=== PATIENT | female | born 1985 | race Caucasian/White ===

== ENCOUNTER 2022-12-16 08:49 | Outpatient (CLI) | payer OTHER, SELFPAY ==
--- NOTE | ~2022-12-16 | NM_ITS ---
EXAMINATION: NM hepatobiliary wo pharm DATE: 12/16/2022 13:58 INDICATION: Right upper quadrant abdominal pain. COMPARISON: Ultrasound 12/16/2022 TECHNIQUE: 5.4 mCi Tc-99m mebrofenin (Choletec) was administered intravenously. Scintigraphic images of the abdomen were obtained for one hour. Then, the patient drank 8 oz Ensure, and imaging was cont inued for 60 minutes. FINDINGS: There is normal clearance of radiotracer from the blood pool. There is homogeneous tracer u ptake by the liver. Activity progresses to the bowel and gallbladder. Gallbladder ejection fraction (GBEF) was 31%. Note that with this technique, normal GBEF >= 33%. IMPRESSION: 1. Low gallbladder ejection fraction, consistent with gallbladder dysfunction and/or chronic cholecy stitis. Reviewed, dictated and finalized at location A. ROOM CLERK IMPRESSION: 1. Low gallbladder ejection fraction, consistent with gallbladder dysfunction and/or chronic cholecystitis.
--- NOTE | ~2022-12-16 | US_ITS ---
Abdominal Sonogram: Real-time sonographic imaging of the abdomen was performed. Clinical History: Abdominal pain Findings: The liver appears normal with no evidence of mass lesion or bile duct dilatation. Main por beba vein demonstrates normal direction of flow. The spleen is normal in size without evidence of foca l lesion. The gallbladder is well distended, and appears normal with no evidence of gallstone or wal l thickening. The common bile duct measures 3 mm. The visualized pancreas, aorta, and IVC are unrema rkable. The right kidney measures 10.4 cm in length and the left kidney measures 10.5 cm. There is no hydronephrosis or renal calculus. Impression: Unremarkable abdominal ultrasound. Reviewed, dictated and finalized at location . GRAPH OFFICE ROUTE AIDE Impression: Unremarkable abdominal ultrasound.
== END 2022-12-16 08:50 | disposition home or self-care (01) ==
PROVIDERS: PCP Emergency Medicine; Visit Provider Emergency Medicine
DX: R10.11 Right upper quadrant pain (principal)
CPT/HCPCS: 76700; 78226; A9537

== ENCOUNTER 2023-05-12 03:25 | Day surgery (SDC) | payer OTHER, SELFPAY ==
--- NOTE | 2023-05-09 14:30 | PM.HPGS ---
History of Present Illness History of Present Illness Consent: Risks, benefits, and alternatives have been discussed and questions answered. Patient agrees to proceed with procedure. Chief complaint: Right upper quadrant pain, nausea Narrative: Charisse Blanton is a 38 year old female referred ?for evaluation of right upper quadrant pain.? Right upper quadrant pain has been going on for approximately 6 months.? reports a constant dull ache in her right upper quadrant that radiates to her back up into her shoulder blades and into neck and down her right arm. At first thought pain was MSK and underwent PT with no improvement. Pain believe to gallbladder related. She did have a mildly low ejection fraction at 31 with normal abdominal US. Then referred to Dr. Cee. Per Dr. Cee notes, he didnt feel like these were typical gallbladder symptoms and referred to us. She states right upper quadrant pain is worse with eating beef, oatmeal, high protein diet, eggs, and nuts. She follows a strict gluten free and lactose free diet. She reports nausea every AM with no vomiting. Also reports no appetite in the morning. Morning routine usually consist of coffee and her protein shake.? Nausea improves throughout the day. Review of Systems Review of Systems: All systems reviewed & are unremarkable except as noted in HPI and below PMFSH Past Medical History Medical History Constipation Surgical History Surgical History History of endometrial ablation 2020 Family History Family History (Updated 12/30/22 @ 10:03 by Michelle Benitez) Father Hyperlipidemia Brain cancer Mother Hyperlipidemia Hypertension Social History Social History Years smoked: 2 Smoking status: Former smoker Tobacco type: cigarettes Smoking end date: 10/27/02 Alcohol intake: current Alcohol use details: 1 glass wine/month Substance use: never Substance use type: does not use Living arrangements: with family Spiritual care concerns: No Meds Home Medications and Allergies Home Medications Medication Instructions Recorded Confirmed Type No Home Medications 12/30/22 05/12/23 History Allergies Allergy/AdvReac Type Severity Reaction Status Date / Time ibuprofen AdvReac Other Verified 05/12/23 07:45 naproxen AdvReac Other Verified 05/12/23 07:45 Exam Const: General: alert Orientation/consciousness: patient oriented x3 Resp: Auscultation: clear to auscultation bilaterally Cardio: Rhythm: regular rhythm GI: GI Palp: Yes Soft to palpation and No Tenderness to palpation present (GI) Neuro: General: patient oriented x3 Assessment and Plan Assessment and plan (1) RUQ pain: Code(s): R10.11 - Right upper quadrant pain Status: Acute Assessment and Plan: EGD with possible biopsy or dilatation or cautery.
[2023-05-12 07:46] VITALS: BP 114/81; PULSE 71; RESP 15; TEMP 36.3; O2SAT 100; BMI 25.8
[2023-05-12] MEDS: LACTATED RINGERS 1,000 ML 150 ML IV CONT (07:58)
--- NOTE | 2023-05-12 08:38 | P.PNAN_ITS ---
Anes - Initial Pre Proc Eval Procedure: Operation Date: 05/12/23 09:00 Proposed Procedures p Esophagogastroduodenoscopy - Tulio Dillon MD Date/Time: 05/12/23 08:38 Surgeon: Tulio Dillon MD Pre Op Diagnosis: Right upper quadrant pain, nausea Patient Data Age: 38 Gender: F Height: 1.55 m Weight: 62.1 kg Last Vital Signs Temp 97.3 F L 05/12/23 07:46 Pulse 71 05/12/23 07:46 Resp 15 05/12/23 07:46 BP 114/81 05/12/23 07:46 Pulse Ox 100 05/12/23 07:46 O2 Del Method Room Air 05/12/23 07:46 Allergies Allergy/AdvReac Type Severity Reaction Status Date / Time ibuprofen AdvReac Other Verified 05/12/23 07:45 naproxen AdvReac Other Verified 05/12/23 07:45 Home Medications Medication Instructions Recorded Confirmed Type No Home Medications 12/30/22 05/12/23 History Patient hx anesthesia problems: none Family hx anesthesia problems: none Results Review: All pre-operative results and documents have been reviewed as part of the pre- operative evaluation. FOR[facility]LY [facility] Past Medical History Medical History (Updated 01/15/23 @ 11:07 by ADRIENNE Carrillo) Constipation Surgical History Surgical History (Updated 12/30/22 @ 10:01 by Michelle Benitez) History of endometrial ablation 2020 Family History Family History (Updated 12/30/22 @ 10:03 by Michelle Benitez) Father Hyperlipidemia Brain cancer Mother Hyperlipidemia Hypertension Social History Social History (Updated 12/30/22 @ 10:02 by Michelle Benitez) Years smoked: 2 Smoking status: Former smoker Tobacco type: cigarettes Smoking end date: 10/27/02 Alcohol intake: current Alcohol use details: 1 glass wine/month Substance use: never Substance use type: does not use Living arrangements: with family Spiritual care concerns: No Anes - Eval Final PreProcedure Day of Procedure 05/12/23 08:38 Patient weight: normal Heart: regular rate and rhythm Lungs: clear to auscultation Airway: Mallampati scale class II Neurological: alert and oriented Last oral intake: >/= 8 hours ASA classification: II Emergent: no Anesthetic plan: proceed Anesthesia type and monitoring: general GIVS and standard monitoring Results Review: All pre-operative results and documents have been reviewed as part of the pre- operative evaluation. Informed Consent: The patient's anesthetic plan and its attendant risks and benefits were discussed with the patient/family/POA. Questions were solicited and answers provided to the satisfaction of the patient/family/POA.
[2023-05-12 09:10] VITALS: BP 104/66; PULSE 86; RESP 19; O2SAT 100
[2023-05-12 09:20] VITALS: BP 106/71; PULSE 82; RESP 20; O2SAT 98
[2023-05-12 09:30] VITALS: BP 106/67; PULSE 80; RESP 20; O2SAT 100
== END 2023-05-12 09:37 | disposition home or self-care (01) ==
PROVIDERS: PCP Emergency Medicine; Visit Provider Internal Medicine Gastroenterology
PROC: 0DJ08ZZ Inspection of Upper Intestinal Tract, Via Natural or Artificial Opening Endoscopic (ICD-10-PCS; CPT 43235; principal; 2023-05-12 09:00)
DX: R10.11 Right upper quadrant pain (principal); R11.0 Nausea; Z87.891 Personal history of nicotine dependence; K21.9 Gastro-esophageal reflux disease without esophagitis
CPT/HCPCS: 43235; 87081; J2704; J7120

== ENCOUNTER 2023-08-28 12:40 | Outpatient (CLI) | payer OTHER, SELFPAY ==
[2023-08-28 15:08] LABS: Alanine Aminotransferase 20 U/L (6-35); Albumin Level 4.2 g/dL (3.5-5.1); Alkaline Phosphatase 43 U/L (38-126); Amylase 89 U/L (30-110); Aspartate Amino Transferase 25 U/L (14-36); Bilirubin,Total 0.3 mg/dL (0.2-1.3); Lipase 74 U/L (23-300)
== END 2023-08-28 12:41 | disposition home or self-care (01) ==
PROVIDERS: PCP Emergency Medicine; Visit Provider Surgery
DX: K81.1 Chronic cholecystitis (principal); Z01.818 Encounter for other preprocedural examination
CPT/HCPCS: 36415; 80076; 82150; 83690; 86850; 86900; 86901

== ENCOUNTER 2023-09-03 03:15 | Day surgery (SDC) | payer OTHER, SELFPAY ==
[2023-08-26 14:56] VITALS: BMI 25.1
--- NOTE | 2023-08-26 15:00 | PC.NURSE ---
Report to the Outpatient Waiting Room, entrance under the green pavilion located off [facility], at time 11:30 on date 09/03/23. Planned Procedure Time: 1:30. Time changes happen often and if your time is changed the preop area will call you the afternoon before. - You and your visitor will be asked to self-screen and do not enter if you have any COVID symptoms. - A mask is optional within the hospital at this time. Patients may have clear liquids (water, carbonated beverages, clear teas, apple juice) until 3 hours prior to surgery (10:30) with a maximum of 20 ounces. - No food from midnight until time of surgery Take the following medications with a SIP of water the morning of surgery: N/A DO NOT STOP ANY OF YOUR OTHER PRESCRIPTION MEDICATIONS PRIOR TO SURGERY ?EXCEPT THE FOLLOWING Medications to discontinue per physician: N/A Date to take last dose: N/A Please no make-up, nail dominican, hairspray, perfume, deodorant, or body powder the day of surgery. No jewelry (including any body piercings) or valuables the day of surgery, leave them at home. Please take a shower or bath the night before, or the morning of, surgery with an antibacterial soap. Wear comfortable, loose fitting clothing. - Jewelry must be removed prior to entering the operating room. Rings and piercings that are not removed may be cut off. - The hospital will not accept responsibility for valuables. - Please leave all valuables, including medications, at home the day of surgery. If you are going home after surgery, a licensed local delivery driver must drive you home. - NO public transportation without another adult if you receive anesthesia. - We recommend that an adult stay with you for 24 hours following discharge. - We also recommend that you do not drive, make important decision, drink alcoholic beverages, or take any drugs that were not prescribed by your health care provider for at least 24 hours after your discharge time. Follow any additional instructions given to you from your surgeon. If you or anyone in your household have experienced Covid symptoms in the past week, please notify your surgeon or the nurse liaison at the phone number below for possible testing. Telephone instructions given to PT - GREG VINES and asked if any additional questions and then verbalized understanding. Patient advised to call surgeon office or pre surgery nurse liaison [phone] if any additional questions.
[2023-09-03] VITALS (10 sets, daily range): BP systolic 103–125; BP diastolic 65–84; PULSE 64–77; RESP 12–18; TEMP 36.2–36.5; O2SAT 95–100
--- NOTE | 2023-09-03 12:35 | WPDHPUPDATE1 ---
History and Physical Update Update Date/Time: 09/03/23 12:35 History and Physical has been reviewed, including an updated exam of the patient. There are NO changes in the patient's condition. Risks, benefits, and alternatives have been discussed and questions answered. Patient agrees to proceed with procedure.
--- NOTE | 2023-09-03 12:36 | P.PNAN_ITS ---
Anes - Initial Pre Proc Eval Procedure: Operation Date: 09/03/23 13:30 Proposed Procedures p Laparoscopic Cholecystectomy - Abelino Cee MD Date/Time: 09/03/23 12:36 Surgeon: Abelino Cee MD Pre Op Diagnosis: Chr Cholecystitis Patient Data Age: 38 Gender: F Height: 1.55 m Weight: 60.35 kg Allergies Allergy/AdvReac Type Severity Reaction Status Date / Time ibuprofen AdvReac Flushing Verified 08/26/23 14:56 naproxen AdvReac Flushing Verified 08/26/23 14:56 Home Medications Medication Instructions Recorded Confirmed Type No Home Medications 12/30/22 08/27/23 History Patient hx anesthesia problems: none Family hx anesthesia problems: none Results Review: All pre-operative results and documents have been reviewed as part of the pre- operative evaluation. PMFSH Past Medical History Medical History Constipation Surgical History Surgical History History of endometrial ablation 2020 Family History Family History (Updated 12/30/22 @ 10:03 by Michelle Benitez) Father Hyperlipidemia Brain cancer Mother Hyperlipidemia Hypertension Social History Social History Years smoked: 3 Smoking status: Former smoker Tobacco type: cigarettes Smoking end date: 10/27/02 Alcohol intake: never Alcohol use details: 1 glass wine/month Substance use: never Substance use type: does not use Living arrangements: with family Spiritual care concerns: No Anes - Eval Final PreProcedure Day of Procedure 09/03/23 12:36 Patient weight: normal Heart: regular rate and rhythm Lungs: clear to auscultation Airway: Mallampati scale class II Neurological: alert and oriented Last oral intake: >/= 8 hours ASA classification: II Emergent: no Anesthetic plan: proceed Anesthesia type and monitoring: general ETT and standard monitoring Results Review: All pre-operative results and documents have been reviewed as part of the pre- operative evaluation. Informed Consent: The patient's anesthetic plan and its attendant risks and benefits were discussed with the patient/family/POA. Questions were solicited and answers provided to the satisfaction of the patient/family/POA.
[2023-09-03] MEDS: ceFAZolin 2 GM/D5W 50 ML 2 GM/50 ML BAG IVPB (13:06)
[2023-09-03] MEDS: BUPIVACAINE/EPINEPHRINE 0.5% 50 ML VIAL INFILTRATE (13:59)
[2023-09-03] MEDS: LACTATED RINGERS 1,000 ML 30 ML IV CONT ×2 (14:16)
--- NOTE | 2023-09-03 14:23 | P.OP_ITS ---
Procedure Note - Detailed Date of Procedure 09/03/23 Pre-op Diagnosis Acalculous chronic cholecystitis Post-op Diagnosis Same Procedure Performed Laparoscopic cholecystectomy Surgeon Abelino Cee MD Wire Products Inspector Zoey Stein [facility] Anesthesia General and Local Indications Patient is a 38-year-old woman who has postprandial right upper quadrant pain that radiates around to her back. She had a gallbladder ultrasound which was negative. Her HIDA scan had a low gallbladder ejection fraction. She had an EGD which showed some nonerosive reflux disease. She is felt to have acalculous chronic cholecystitis and is taken to surgery now for laparoscopic cholecystectomy. Findings I did not see any stones in the gallbladder. There was thickened bile. Liver appeared normal. There was chronic inflammation in the area of the neck of the gallbladder as well as the triangle of Calot. This was consistent with chronic cholecystitis. Description of Procedure Patient was taken to surgery and induced into general anesthesia. The abdomen is prepped and draped. Trocars were placed in the usual fashion using applied Medical optical trocars and a varies needle. After adequate insufflation, we exposed the gallbladder. I tried to decompress the gallbladder with a laparoscopic aspirator. The bile was too thick to passed through the aspirator. I then enlarged this hole and placed the suction in the gallbladder which did go ahead and allow the gallbladder to be decompressed. This opening in the gallbladder was then closed with a Vicryl endoloop. The gallbladder was retracted anterosuperiorly. Dissection was carried out in the cholecystohepatic triangle. The cystic duct and cystic artery were carefully dissected. Gallbladder was dissected off the liver at its lower half. Critical view was achieved. I then securely clipped and divided the cystic duct and cystic artery. The gallbladder was further dissected free of its peritoneal attachments and of the peritoneum to the liver. Once freed, the gallbladder was placed in an Endo-Catch bag. It was able to be retrieved through the 10 11 epigastric trocar site without difficulty. We replaced the epigastric trocar a nd reviewed the right upper quadrant. Irrigation and suction were carried out several times. All looked good with no evidence of bleeding or bile leakage. We then evacuated CO2 and removed the trocar sleeves. Skin wounds were closed with subcuticular 4-0 Monocryl skin suture. The wounds were dressed with Exofin surgical adhesive. The patient was awakened and taken to recovery in good condition. Sponge and needle counts were correct x2. Estimated Blood Loss -5 Drains No Packing No Pathology Yes (Gallbladder) Complications No immediate complications Condition Stable Disposition PACU [facility] Billing Surgery - Charge Forward: Surgery Billing (Laparoscopic cholecystectomy)
[2023-09-03] MEDS: fentaNYL CITRATE INJ (*CRX) 100 MCG/2 ML VIAL 25 MCG IV PUSH ×6 (14:27→15:06)
[2023-09-03] MEDS: ONDANSETRON INJ 4 MG/2 ML VIAL IV PUSH (15:34)
[2023-09-03] MEDS: SCOPOLAMINE 1.5 MG PATCH TRANSDERM (15:49)
[2023-09-03] MEDS: diphenhydrAMINE HCl INJ 50 MG/ML VIAL 25 MG IV PUSH (16:21)
== END 2023-09-03 16:45 | disposition home or self-care (01) ==
PROVIDERS: PCP Emergency Medicine; Visit Provider Surgery
PROC: 0FT44ZZ Resection of Gallbladder, Percutaneous Endoscopic Approach (ICD-10-PCS; CPT 47562; principal; 2023-09-03 13:30)
DX: K81.1 Chronic cholecystitis (principal); Z87.891 Personal history of nicotine dependence
CPT/HCPCS: 47562; 88304; A9270; C1713; J0690; J1100; J1170; J1200; J2250; J2405; J2704; J3010; J7120

== ENCOUNTER 2025-05-16 13:27 | Outpatient (CLI) | payer OTHER, SELFPAY ==
--- NOTE | ~2025-05-16 | MMUS_ITS ---
EXAMINATION: MM diagnostic farooq BI w drake and US breast BI limited. INDICATION: 40-year old female; evaluation of left breast palpable lump felt by the patient at 12:00 location and palpable right breast lump felt by the care provider at 11:00 location. 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 COMPARISON: Baseline. TECHNIQUE: Digital breast tomosynthesis True lateral and spot compression with magnification views in MLO and CC of the BILATERAL breasts were obtained with computer-aided detection to assist in interpr etation of the study. A radiopaque skin marker identifies location of palpable lump in the left breas t. MAMMOGRAM FINDINGS: The breasts are heterogeneously dense, which may obscure small masses. Loosely grouped punctate calcifications in the upper central right breast. Asymmetry seen in the medi al at anterior depth within the right breast effaces on spot compression compatible with superimposit ion of fibroglandular tissue. Regional punctate calcifications that spans 2.6 cm in the outer central at posterior depth centered a t 7 cm posterior to the nipple are considered suspicious. In addition, there is a 0.4 cm grouped punc saunders calcifications in the subareolar location within the left breast. A focal asymmetry in the superior central at posterior depth correlates to the radiopaque skin marker on the left breast BILATERAL BREAST ULTRASOUND FINDINGS: Targeted evaluation of the palpable areas in both breast was completed. Right breast: Corresponding to the area of palpable lump felt by the provider, there is a 0.8 x 0.9 x 0.5 cm simple cyst at 11:00, 1 cm from the nipple. Left breast: Corresponding to the area of palpable lump felt by the patient, there is an heterogeneou s hyperechoic area the measure 2.3 x 2.7 x 0.7 cm at 12:00 location, 4 cm from the nipple. IMPRESSION: 1. Suspicious left breast regional calcifications in the outer central location and at subareolar lo cation. Recommend biopsy of both groups under stereotactic guidance. 2. Indeterminate heterogeneous hyperechoic palpable lesion at 12:00 location in the left breast that correlates to the palpable lump. Biopsy is recommended. 3. Probably benign loosely grouped punctate calcification upper central right breast. Short-term fol low-up is advised. 4. Benign simple cyst at 11:00 location in the right breast correlates to the palpable lump felt by the clinician. RECOMMENDATION: 1. Stereotactic core needle biopsy of left breast regional calcification outer central location. 2. Stereotactic core needle biopsy left breast subareolar grouped calcifications. 3. Ultrasound guided core needle biopsy of palpable indeterminate lesion at 12:00 location in the lef t breast. 4. Short-term follow-up diagnostic right mammogram with magnification views in 6 months. BI-RADS 4, SUSPICIOUS Reviewed, dictated and finalized at location B. IMPRESSION: 1. Suspicious left breast regional calcifications in the outer central locatio n and at subareolar location. Recommend biopsy of both groups under stereotacti c guidance. 2. Indeterminate heterogeneous hyperechoic palpable lesion at 12:00 location i n the left breast that correlates to the palpable lump. Biopsy is recommended. 3. Probably benign loosely grouped punctate calcification upper central right breast. Short-term follow-up is advised. 4. Benign simple cyst at 11:00 location in the right breast correlates to the palpable lump felt by the clinician. RECOMMENDATION: 1. Stereotactic core needle biopsy of left breast regional calcification outer central location. 2. Stereotactic core needle biopsy left breast subareolar grouped calcification s. 3. Ultrasound guided core needle biopsy of palpable indeterminate lesion at 12: 00 location in the left breast. 4. Short-term follow-up diagnostic right mammogram with magnification views in 6 months. BI-RADS 4, SUSPICIOUS
--- OUTSIDE RECORDS SUMMARY | 2025-05-16 13:35 | XMS_ITS | Patient Health Record ---
Author Organization [facility] Address [address] [place] [address] Care Team Providers Care Grab Driver Name Role Phone [facility] Unavailable [phone] Reason For Referral No Information Medications Medication SIG (Take, Route, Frequency, Duration) Notes Start Date End Date Status Fluticasone Propionate 50 MCG/ACT 1 spray on each nostril once a day Nasal 02/11/2018 Active Clotrimazole-Betamethasone 1-0.05 % apply on external vaginal area twice a day External 03/19/2019 Active Ofloxacin 0.3 % 1-2 drops on affecte d eye/s three times a day Ophthalmic 11/26/2019 Active Medrol 4 MG take as directed on the pack Oral 08/25/2017 Active LORazepam 0.5 MG take 1 tab 1 hr prio r to MRI Oral 09/11/2017 Active Amoxicillin 875 MG twice a day Oral twi ce a day 05/30/2017 Active Tamiflu 6 MG/ML Take 12.50 mL 2 time s per day for 5 day(s) Oral 11/24/2017 Active Singulair 10 MG once a day Oral once a day 01/21/2020 Active Proctosol HC 2.5 % apply on rectal area twice a day Rectal 03/19/2019 Active Omeprazole 40 MG once a day Oral once a day 03/31/2018 Active Amoxicillin 400 MG/5ML take 10 ml twice a day for 10 days Oral 02/11/2018 Active Immunizations Vaccine Route Administration Date Status Comme nts Influenza (split), 3 yrs and above Unknown 11/03/2019 Administered vaccine informat ion given patient gave verbal consent for vaccine Problems Problem Type SNOMED Code ICD Code Onset Dates Problem Status W/U Status Risk Notes Problem Acute sinusitis (58899961) Acute sinusitis, unspecified (J01.90) 02/12/20 18 Active confirmed Problem Cervicalgia (04173929) Cervicalgia (M54.2) 09/01/20 17 Active confirmed Problem Dysphagia (86978870) Dysphagia, unspecified (R13.10) 02/12/20 18 Active confirmed Problem Low back pain (087654825) DO NOT USE Low back pain (M54.5) 08/25/20 17 Active confirmed Problem Abnormal cervical Papanicolaou smear with positive human papillomavirus deoxyribonucleic acid test (856166509) Cervical low risk HPV DNA test positive (R87.820) 11/26/19 20 Active confirmed Plan Of Treatment No Information Insurance Providers Payer Name Payer Address Payer Phone Subscriber Number Group Number Insured Name Patient Relationship to Insured Coverage Start Date Coverage End Date [address] [place] [phone] [id number] Jaylen Duenas Spouse - patient is the spouse of the insured 8
--- OUTSIDE RECORDS SUMMARY | 2025-05-16 13:35 | XMS_ITS | Continuity of Care Document ---
Author Name [facility] Organization [facility] Care Team Providers Care Book Or Script Editor Name Role Phone [facility] Unavailable Unavailable Problems Combined list of problems from Department of Defense and Veterans Affairs facilities. It does not include entries that were removed or entered in error. Problem Status Onset Date Problem Type Date of Resolution Comments Source NORMAL ROUTINE HISTORY AND PHYSICAL ADULT (18-65) Inactive Condition DoD OTHER SPECIFIED FAMILY CIRCUMSTANCES Active Condition [facility] Administrative Evaluation Services Inactive Condition [facility] NORMAL CHECKUP - THIRD TRIMESTER Inactive Condition [facility] NORMAL CHECKUP (6 - 42 Wk) Inactive Condition [facility] Supervision Of Normal Inactive Condition [facility] visit for: issue repeat prescription for vision Active Condition [facility] NORMAL CHECKUP - FIRST TRIMESTER Inactive Condition [facility] Education Active Condition [facility] Test Positive Inactive Condition [facility] visit for: administrative purpose Inactive Condition [facility] Vaccines Prophylactic Need Against Influenza Inactive Condition [facility] ROUTINE GYNECOLOGICAL EXAM WITH CERVICAL PAP SMEAR Inactive Condition [facility] NORMAL ROUTINE HISTORY AND PHYSICAL Active Condition DoD earache Inactive Condition discussed some options. ear block vs other. not much change per her report with valsalva. she is going to [place] with her one year old. will make a clinic appt after she gets back if ssx persist DoD DERMATITIS Active Condition DoD diarrhea Inactive Condition sounds mos t like irritable bowel-diarrhe a predominant. aafp handout [facility] ECZEMA Active Condition has skin lotion at home [facility] DERMATOMYCOSIS TINEA VERSICOLOR Active Condition [facility] Contraceptives Inactive Condition DoD Medications Combined list of outpatient medications from Department of Defense and Veterans Affairs facilities.Medications provided include 1) outpatient medications from the last 15 months, and 2) patient-reported medications. Medication Details Route Status Patient Instructions Prescription Expires Prescription Number Last Dispense Date Ordering Provider Order Date Order Qty Source fluticasone 50 mcg/inh nasal spray fluticas one 50 mcg/inh nasal spray Start Date: 01/24/20 Status: Ordered Repeat number: 1 Ordered 2019 No Facilit y Access montelukast 10 mg oral tablet monteluk ast 10 mg oral tablet Start Date: 01/24/20 Status: Ordered Repeat number: 1 Ordered 2019 No Facilit y Access ofloxacin 0.3% ophthalmic solution ofloxaci n 0.3% ophthalm ic solution Start Date: 11/27/19 Status: Ordered Repeat number: 1 Ordered 2019 No Facilit y Access Allergies, Adverse Reactions, Alerts Combined list of allergies from Department of Defense and Veterans Affairs facilities. It does not include entries that were removed or entered in error. Substance Category Reaction Severity Reaction type Status Date Reported Comments Source ibuprofen Propensity to adverse reactions to substance Tachycardia Active 6 Unknown Organizat ion IBUPROFEN- PMR (IBUPROFEN ) Drug allergy (disorder) Syncope, Tachycardia active 6 [facility] Immunizations Combined list of available immunizations from the Department of Defense and Veterans Affairs facilities. 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 (MED) complet ed influenza virus vaccine, live, attenuate d, for intranasa l use DoD Encounters Combined list of: 1) Encounters from Department of Veterans Affairs facilities going backup to the last 18 months, not all VA inpatient encounters are included; 2) Encounters from the Department of Defense facilities going backup to 280 months. Location Location Details Encounter Type Encounter Number Reason For Visit Attending Provider ADM Date DC Date Status Disposition Source [facility](Pr imary Care QU) OUTPATIENT [id number] F.U ON CONTROL MEDS PER PT JAIME BANKS 07/04 Released w/o Limitations [facility]( Primary Care QU) [facility](Pr imary Care QU) OUTPATIENT [id number] SKIN IRRITAT ION PER PTS MANDY CARREON MADISYN 09/26 Released w/o Limitations [facility]( Primary Care QU) [facility](Pr imary Care QU) OUTPATIENT [id number] REOCCUR ING RASH PERPT JAIME BANKS 10/07 Released w/o Limitations [facility]( Primary Care QU) [facility](Pr imary Care QU) OUTPATIENT [id number] DIONISIO Terrell JAIME BANKS 01/23 Released w/o Limitations [facility]( Primary Care QU) [facility](Pr imary Care QU) TELE CONSULT [id number] please call JAIME BANKS 03/30 [facility]( Primary Care QU) [place] [facility] [place]PAT[place] [id number] WWE/PAP JAIME WEAVER 09/04 Released w/o Limitations [facility] [place] [place] [facility] [place] [place] [facility] TELE CONSULT [id number] OB REGISTR ATION APPT MAURI DENG 01/12 [place] [facility] [place] [facility] [place] Team [facility] TELE CONSULT [id number] per pt stated 5weeks pregnan t and spottin g pls call [phone] MAURI DENG 01/15 [facility] [place] [place] OUTPATIENT [id number] lmp 12/09/09 , DD 0 MAURI DENG 02/02 Released w/o Limitations [facility] [place] [place] [facility] [place] OUTPATIENT [id number] NOB LMP 12/09/09 , DD 0 LEBRON KIRK 02/20 Released w/o Limitations [facility] [place] [facility] [place]) OUTPATIENT [id number] 14weeks OB fu LEBRON KIRK 03/15 Released w/o Limitations [facility] [place] [place] [facility] [place] TELE CONSULT [id number] pt. need an appt. for 15-16wk s pregnan t/ultra sound TABITHA MARIN 03/30 [place] [facility] [place] [facility] [place] OUTPATIENT [id number] 16 week LBERON GUADALUPE 03/30 Released w/o Limitations [facility] [place] [facility] [place] TELE CONSULT [id number] PTreque OB APPT, need 20wk visit due this week or next week. VIVEK PRABHAKAR 05/07 [place] [facility] [place] [facility] [place] OUTPATIENT [id number] 21 wk ob ROSENDO LEVY 05/15 Released w/o Limitations [facility] [place] [facility] [place] TELE CONSULT [id number] nurse advice VIVEK PRABHAKAR 05/21 [place] [facility] [place] [facility] [place]) OUTPATIENT [id number] 26 weeks prenata l f/u JAIME LYNCH 06/08 Released w/o Limitations [facility] [place] [facility] [place] TELE CONSULT [id number] 27wks pregnan t been spottin g/no abd pain VIVEK PRABHAKAR 06/14 [facility] [place] [facility] [place] OUTPATIENT [id number] 31 weeks prenata l f/u JAIME LYNCH 07/12 Released w/o Limitations [facility] [place] [facility] [place]) OUTPATIENT [id number] ob 36 wks ROSENDO LEVY 08/21 Released w/o Limitations [facility] [place] [facility] [place]) OUTPATIENT [id number] 38 week f/u LEBRON KIRK 09/04 Released w/o Limitations [facility] [place] [facility] [place] OUTPATIENT [id number] SAVANNA 39wks preg. ROSENDO LEVY SANJUANITA 09/10 Released w/o Limitations [facility] [place] [facility] OUTPAT[place] [id number] ROSENDO Quick SANJUANITA 09/18 Released w/o Limitations [facility] [place] [place] [facility] [place] [facility] [place] [facility] FROM OTHER THAN ER OR APU [id number] BUDCONCETTAPATIENCE Claudette 09/22 DISCHARGED HOME [place] [facility] [place] [facility] [place] [place] [facility] INPATIENT [id number] GAU consult . Spouse HENRIK Branch 09/25 Inpatient- Still a Patient [place] [facility] [place] [place] [facility] [facility] [place] OUT[place] [id number] 6 WKS postpar ROSENDO Meier SANJUANITA 11/05 Released w/o Limitations [facility] [place] [facility] [place] [facility] [place] TELE CONSULT [id number] Notes Entered by: HUI FERNANDEZ 02 Dec 2013 1013 ------- ------- ------- ------- -- HUI Ferraro 12/02 Referred for Appointment [place] [facility] [place] [facility] [place] [place] [facility] [place] OUTPATIENT [id number] ELVIRA Evans 11/04 Released w/o Limitations [facility] [place] [facility] [place] [facility] [place] TELE CONSULT [id number] Notes Entered by: BASHIR THOMSON 08 Nov 2014 1017 ------- ------- ------- ------- -- Intake Appoint ment ALIX, JAZELLE G 11/08 [place] for Appointment [place] [facility] [place] [place] [facility]) OUTPATIENT [id number] IRAIDA MELBA 07 Dec 2014 DURHAMGINA ALDRICH Latisha 11/09 Released w/o Limitations [facility] [place] [facility] [place] TELE CONSULT [id number] Notes Entered by: OSCAR SAMUELS V 09 Nov 2014 1126 ------- ------- ------- ------- -- pcm bigorni a/NEED APPOINT MENT IN TWO WEEK FOR 38 WEEK CARLY SHRESTHA 11/09 Referred for Appointment [place] [facility] [place] [place] [facility] [place] [facility] [place] OUTPATIENT [id number] 38 week ELVIRA CATES 11/23 Released w/o Limitations [place] [facility] [place] [place] [facility] [place] [facility] [place] TELE CONSULT [id number] Notes Entered by: Claudette SCHULTZ 25 Nov 2014 0858 ------- ------- ------- ------- -- PCM BIGORNI Nidhi/ /29Y/F/ PT. REQ. EARLIER SAVANNA 39 WK APPT. CARLY BURCH 11/25 Advice Assessment [place] [facility] [place] [place] [facility] [place] [facility] [place] OUTPATIENT [id number] 39 week ELVIRA Coy 11/30 Released w/o Limitations [facility] [place] [place] [facility] [facility] [place] [facility] [place] TELE CONSULT [id number] Notes Entered by: Claudette SCHULTZ 02 Dec 2014 0930 ------- ------- ------- ------- -- PCM CARMINA Terrell/ /29Y/F/ PT. REQ. LISSET EDMOND HER SAVANNA 40 WK APPT. LEVI MONTES 12/02 Referred for Appointment [place] [facility] [place] [place] [facility] [place] [facility] [place] OUTPATIENT [id number] 40 wk SAVANNA -- due date 2014 ELVIRA FONTENOT 12/06 Released w/o Limitations [place] [facility] [place] [place] [facility] [place] [facility] [facility] [place] [facility] OTHER THAN ER OR [facility] [id number] PATIENCE SIDHU 12/14 [place]CHAR[place] [facility] [place] TELE CONSULT [id number] Notes Entered by: DEDRA DUNN 23 Dec 2014 1326 ------- ------- ------- ------- -- RELAY HEALTH/ BLADDER CONCERN ANDERS HEALY 12/23 [place] [facility] [place] [facility] [facility] [facility] [place] [place] TELE CONSULT [id number] Notes Entered by: MARK JONES 03 Jan 2015 1457 ------- ------- ------- ------- -- 6 week PP APPT/PC LILI GUNN 01/03 Other Not Elsewhere Classified [place] [facility] [place] [facility] [place] [facility] [facility] [place] OUTPATIENT [id number] 6 WK P/P C/U. ELVIRA FONTENOT 02/07 Released w/o Limitations [place] [facility] [place] [facility] [place]) OUTPATIENT [id number] PCM BIGORNI A/TO LOOK AT A MOLE LOCATED ON THE CREASE OF NOSE ELVIRA FONTENOT Claudette 04/07 Released w/o Limitations [place] [facility] [place] [place] [facility] [place] [facility] [place] TELE CONSULT [id number] Notes Entered by: ANA BOURGEOIS 10 May 2015 0926 ------- ------- ------- ------- -- pos ear infecti on and throat pain pcm bigorni a CARLY BURCH 05/10 Other Not Elsewhere Classified [place] [facility] [place] [facility] [place] OUTPATIENT [id number] Notes Entered by: MARK JONES 10 May 2015 1229 ------- ------- ------- ------- -- ear infecti onPCM bigorni a nurse visit ELVIRA FONTENOT Claudette 05/10 Released w/o Limitations [place] [facility] [place] [facility] [place] TELE CONSULT [id number] Notes Entered by: ARSENIO CURTIS 23 May 2015 1112 ------- ------- ------- ------- -- Needs nurse visit stitch removal 4 near nostril pcm bigorni a CARLY BURCH 05/23 Referred for Appointment [place] [facility] [place] [facility] [facility] [place] OUTPATIENT [id number] SUTURE REMOVAL LILI PENG 05/26 Released w/o Limitations [place] [facility] [place] [facility] [place] [facility] [place]) OUTPATIENT [id number] SUTURE REMOVAL MATIAS PENGINE 05/29 Released w/o Limitations [place] Family Medicin e [facility] Gold) [facility](TP Family Medicine [facility]) OUTPATIENT [id number] PCM Basim jiménez and arm issues SAMAN BRISENO 07/17 Released w/o Limitations [facility](T P Family Medicin e PC[facility] Gold) [facility](TP Family Medicine [facility]) OUTPATIENT [id number] PCM/Flu id in ears/sy mptoms of vertigo SAMAN BRISENO 11/15 Released w/o Limitations [facility](T P Family Medicin e [facility] Gold) [facility](TP Family Medicine [facility]) TELE CONSULT [id number] Notes Entered by: JAMES CRANE 18 Nov 2016 1502 ------- ------- ------- ------- -- Normal CBC GINETTE, LILI 11/18 Other Not Elsewhere Classified [facility](T P Family Medicin e [facility]) [facility](TP Audiology Clinic) OUTPATIENT [id number] Other periphe ral vertigo . Ear fullnes s. TERRY HOBSON 01/20 Released w/o Limitations [facility](T P Audiolo gy Clinic) [facility] OUTPATIENT [id number] PCM/WWE /PAP SAMAN BRISENO 01/31 Released w/o Limitations [facility](T P Family Medicin e [facility] Gold) Procedures Combined list of: 1) Procedures from Department of Veterans Affairs facilities going back up to thelast 18 months, not all VA non-surgical procedures are included; 2) All procedures from the Department of Defense facilities. Procedure Procedure Type Code Date Perfomer Comments Sourc e No data available for this section [facility] ELECTROCARDIOGRAM, ROUTINE ECG WITH AT LEAST 12 LEADS; WITH INTERPRETATION AND REPORT 021 [facility] SCREENING PAPANICOLAOU SMEAR; OBTAINING, PREPARING AND CONVEYANCE OF CERVICAL OR VAGINAL SMEAR TO LABORATORY 017 [facility] SPEECH AUDIOMETRY THRESHOLD; WITH SPEECH RECOGNITION 017 [facility] Screening papanicolaou smear; obtaining, preparing and conveyance of cervical or vaginal smear to laboratory 017 SAMAN BRISENO Audiometry Speech Threshold With Discrimination Audiometry Speech Threshold With Discrimination [id number] TERRY HOBSON Tympanometry Tympanometry 11588 017 TERRY HOBSON Threshold Audiogram (Pure Tone) Threshold Audiogram (Pure Tone) [id number] [phone] TERRY HOBSON Non-Physician Phone Call To Patient/Provider Brief (5-10min) Non-Physician Phone Call To Patient/Provider Brief (5-10min) [id number] CARLY BURCH Non-Physician Phone Call To Patient/Provider Brief (5-10min) Non-Physician Phone Call To Patient/Provider Brief (5-10min) [id number] 015 CARLY BURCH Ultrasound Obstetric Limited Evaluation Ultrasound Obstetric Limited Evaluation [phone] CORIE, ELVIRA E [facility] Antepartum Care Only Subsequent Single Visit OB Services Antepartum Care Only Subsequent Single Visit [id number] 015 CORIE, ELVIRA E [facility] Antepartum Care Only Subsequent Single Visit OB Services Antepartum Care Only Subsequent Single Visit [id number] 015 CORIE, ELVIRA E [facility] Non-Physician Phone Call To Patient/Provider Brief (5-10min) Non-Physician Phone Call To Patient/Provider Brief (5-10min) [id number] 015 CARLY BURCH Electrocardiogram Electrocardiogram 03030 11/24 015 CORIE, ELVIRA E [facility] Antepartum Care Only Subsequent Single Visit OB Services Antepartum Care Only Subsequent Single Visit [id number] 015 CORIE ELVIRA E [facility] Non-Physician Phone Call To Patient/Provider Brief (5-10min) Non-Physician Phone Call To Patient/Provider Brief (5-10min) [id number] [phone] CARLY BURCH Non-Physician Phone Call To Patient/Provider Brief (5-10min) Non-Physician Phone Call To Patient/Provider Brief (5-10min) [phone] GURDEEP THOMSON [facility] Screening papanicolaou smear; obtaining, preparing and conveyance of cervical or vaginal smear to laboratory 011 ROSENDO LEVY [facility] Social Work Individual Outpatient Counseling 20-30 Minutes Social Work Individual Outpatient Counseling 20-30 Minutes [id number] HENRIK IBRAHIM [facility] Ultrasound Obstetric Limited Evaluation Ultrasound Obstetric Limited Evaluation [phone] ROSENDO LEVY [facility] OB Services Antepartum Care Only Subsequent Single Visit OB Services Antepartum Care Only Subsequent Single Visit [id number] 010 LEVYROSENDO CLEMENT [facility] Routine UA Without Microscopic Examination Routine UA Without Microscopic Examination [id number] 010 LEVYROSENDO CLEMENT [facility] OB Services Antepartum Care Only Subsequent Single Visit OB Services Antepartum Care Only Subsequent Single Visit [id number] 010 LEBRON KIRK [facility] OB Services Antepartum Care Only Subsequent Single Visit OB Services Antepartum Care Only Subsequent Single Visit [id number] 010 JAIME LYNCH [facility] OB Services Antepartum Care Only Subsequent Single Visit OB Services Antepartum Care Only Subsequent Single Visit [id number] 010 JAIME LYNCH [facility] Ultrasound Obstetric Limited Evaluation Ultrasound Obstetric Limited Evaluation 06699 010 LEVYROSENDO CLEMENT [facility] OB Services Antepartum Care Only Subsequent Single Visit OB Services Antepartum Care Only Subsequent Single Visit [id number] 010 LEVYROSENDOEW [facility] OB Services Antepartum Care Only Subsequent Single Visit OB Services Antepartum Care Only Subsequent Single Visit [id number] 010 LEBRON KIRK [facility] Ultrasound Obstetric Limited Evaluation Ultrasound Obstetric Limited Evaluation [id number] 010 LEBRON KIRK OB Services Antepartum Care Only Subsequent Single Visit OB Services Antepartum Care Only Subsequent Single Visit [id number] 010 LEBRON KIRK OB Services Antepartum Care Only First Visit, With Report OB Services Antepartum Care Only First Visit, With Report [id number] 010 LEBRON KIRK Ultrasound Obstetric Limited Evaluation Ultrasound Obstetric Limited Evaluation 16165 010 LEBRON KIRK [facility] Influenza Virus Vaccine Live Intranasal 009 JAIME LYNCH [facility] Immunization Admin By Intranasal / Oral Route One Vaccine Immunization Admin By Intranasal / Oral Route One Vaccine 07552 JAIME LYNCH [facility] Social History Combined list of available smoking, tobacco, and other social history from Department of Defense and Veterans Affairs facilities. Social History Type Response Date Comment Sour e Sex Representation Female (finding) 03/09/2020 Unknown Organization Sexual Orientation [facility] Pharmacy Gender identity [facility] This section is an empty social history section. [facility] Assessment and Plan Combined list of future care activities from Department of Defense and Veterans Affairs facilities (e.g., assessment and plan notes, appointments, orders, and referrals). Additional future care activities may be listed in the Plan of Care section. Result Assessment and Plan Date Source Assessment and Plan No data available for this section 05/16/2025 [facility] Functional Status Combined list of recent functional and cognitive assessments recorded at Department of Defense and Veterans Affairs (VA).VA Functional Bond Measurement (FIM) Scale: 1 = Total Assistance (Subject = 0% +), 2 = Maximal Assistance (Subject = 25% +), 3 = Moderate Assistance (Subject = 50% +), 4 = Minimal Assistance (Subject = 75% +), 5 = Supervision, 6 = Modified Bond (Device), 7 = Complete Bond (Timely, Safely). Assessment Date/Time Source Assessment Type Assessment Skill Assessment Score Assessment Details No data available for this section
== END 2025-05-16 13:28 | disposition home or self-care (01) ==
LOC: ANHIMG 13:29
PROVIDERS: PCP Emergency Medicine; Visit Provider Surgery
DX: N63.25 Unspecified lump in the left breast, overlapping quadrants (principal); N63.11 Unspecified lump in the right breast, upper outer quadrant; R92.8 Other abnormal and inconclusive findings on diagnostic imaging of breast
CPT/HCPCS: 76642; 77062; 77066; G0279

== ENCOUNTER 2025-06-14 08:46 | Outpatient (CLI) | payer OTHER, SELFPAY ==
--- OUTSIDE RECORDS SUMMARY | 2025-06-14 09:11 | XMS_ITS | Continuity of Care Document ---
Author Name [facility] Organization [facility] Care Team Providers Care Employment Instructional Associate Name Role Phone [facility] Unavailable Unavailable Problems Combined list of problems from Department of Defense and Veterans Affairs facilities. It does not include entries that were removed or entered in error. Problem Status Onset Date Problem Type Date of Resolution Comments Source NORMAL ROUTINE HISTORY AND PHYSICAL ADULT (18-65) Inactive Condition DoD OTHER SPECIFIED FAMILY CIRCUMSTANCES Active Condition [facility] Administrative Evaluation Services Inactive Condition [facility] NORMAL CHECKUP - THIRD TRIMESTER Inactive Condition [facility] NORMAL CHECKUP (6 - 42 Wk) Inactive Condition [facility] Supervision Of Normal Inactive Condition [facility] visit for: issue repeat prescription for vision Active Condition [facility] NORMAL CHECKUP - FIRST TRIMESTER Inactive Condition [facility] Education Active Condition [facility] Test Positive Inactive Condition [facility] visit for: administrative purpose Inactive Condition [facility] Vaccines Prophylactic Need Against Influenza Inactive Condition [facility] ROUTINE GYNECOLOGICAL EXAM WITH CERVICAL PAP SMEAR Inactive Condition DoD NORMAL ROUTINE HISTORY AND PHYSICAL Active Condition DoD earache Inactive Condition discussed some options. ear block vs other. not much change per her report with [facility]. she is going to [place] with her one year old. will make a clinic appt after she gets back if ssx persist DoD DERMATITIS Active Condition DoD diarrhea Inactive Condition sounds mos t like irritable bowel-diarrhe a predominant. aafp handout [facility] ECZEMA Active Condition has skin lotion at home [facility] DERMATOMYCOSIS TINEA VERSICOLOR Active Condition [facility] Contraceptives Inactive Condition DoD Medications Combined list [...] Drug allergy (disorder) Syncope, Tachycardia active 6 [facility] Immunizations Combined list of available immunizations from the Department of Defense and Veterans Affairs facilities. 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 (MED) complet ed influenza virus vaccine, [...] ADM Date DC Date Status Disposition Source [facility](Pr imary Care QU) OUTPATIENT [id number] F.U ON CONTROL MEDS PER PT JAIME BANKS 07/04 Released w/o Limitations [facility]( Primary Care QU) [facility](Pr imary Care QU) OUTPATIENT [id number] SKIN IRRITAT ION PER PTS MANDY CARREON MADISYN 09/26 Released w/o Limitations [facility]( Primary Care QU) [facility](Pr imary Care QU) OUTPATIENT [id number] REOCCUR ING RASH PERPT JAIME BANKS 10/07 Released w/o Limitations [facility]( Primary Care QU) [facility](Pr imary Care QU) OUTPATIENT [id number] DIONISIO Terrell JAIME BANKS 01/23 Released w/o Limitations [facility]( Primary Care QU) [facility](Pr imary Care QU) TELE CONSULT [id number] please call JAIME BANKS 03/30 [facility]( Primary Care QU) [facility] [place]PAT[place] [id number] WWE/PAP JAIME WEAVER 09/04 Released w/o Limitations [facility] [facility] [place] [facility] [facility] TELE CONSULT [id number] OB REGISTR ATION APPT MAURI DENG 01/12 [facility] [facility] [place] TELE CONSULT [id number] per pt stated 5weeks pregnan t and spottin g pls call [phone] MAURI DENG 01/15 [facility] [facility] [place] OUTPAT[place] [id number] lmp 12/09/09 , DD 0 MAURI DENG 02/02 Released w/o Limitations [facility] [facility] [place] OUTPAT[place] [id number] NOB LMP 12/09/09 , DD 0 LEBRON KIRK 02/20 Released w/o Limitations [facility] [facility] [place] OUTPAT[place] [id number] 14weeks OB fu LEBRON KIRK 03/15 Released w/o Limitations [facility] [facility] [place] TELE CONSULT [id number] pt. need an appt. for 15-16wk s pregnan t/ultra sound TABITHA MARIN 03/30 [facility] [facility] [place]) OUTPATIENT [id number] 16 week LEBRON GUADALUPE 03/30 Released w/o Limitations [facility] [facility] [place] TELE CONSULT [id number] PTreque OB APPT, need 20wk visit due this week or next week. VIVEK PRABHAKAR 05/07 [facility] [facility] [place] OUTPATIENT [id number] 21 wk ob ROSENDO LEVY 05/15 Released w/o Limitations [facility] [facility] [place] TELE CONSULT [id number] nurse advice VIVEK PRABHAKAR 05/21 [facility] [place] [facility] [place]) OUTPATIENT [id number] 26 weeks prenata l f/u JAIME LYNCH 06/08 Released w/o Limitations [facility] [facility] [place] TELE CONSULT [id number] 27wks pregnan t been spottin g/no abd pain VIVEK PRABHAKAR 06/14 [facility] [facility] [place] OUTPATIENT [id number] 31 weeks prenata l f/u JAIME LYNCH 07/12 Released w/o Limitations [facility] [place] [facility] [place]) OUTPATIENT [id number] ob 36 wks ROSENDO LEVY 08/21 Released w/o Limitations [facility] [facility] [place] OUTPATIENT [id number] 38 week f/u LEBRON KIRK 09/04 Released w/o Limitations [facility] [facility] [place] OUTPATIENT [id number] SAVANNA 39wks preg. ROSENDO LEVY SANJUANITA 09/10 Released w/o Limitations [facility] [place] [facility] [place] OUTPAT[place] [id number] ROSENDO Quick SANJUANITA 09/18 Released w/o Limitations [facility] [facility] [place] [facility] [place] [facility] FROM OTHER THAN ER OR APU [id number] BUDCONCETTAPATIENCE Claudette 09/22 DISCHARGED HOME [facility] [place] [facility] [place] INPATIENT [id number] MAU consult . Spouse HENRIK Branch 09/25 Inpatient- Still a Patient [facility] [place] [facility] [facility] [place] OUTPAT[place] [id number] 6 WKS postpar ROSENDO Meier SANJUANITA 11/05 Released w/o Limitations [facility] [place] [facility] [place] [facility] [place] TELE CONSULT [id number] Notes Entered by: HUI FERNANDEZ 02 Dec 2013 1013 ------- ------- ------- ------- -- HUI Ferraro 12/02 Referred for Appointment [facility] [facility] [place] [facility] [place] OUTPATIENT [id number] ELVIRA Evans 11/04 Released w/o Limitations [facility] [place] [facility] [facility] [place] [facility] [place] TELE CONSULT [id number] Notes Entered by: BASHIR THOMSON 08 Nov 2014 1017 ------- ------- ------- ------- -- Intake Appoint ment ALIX, JAZELLE G 11/08 [place]erred for Appointment [facility] [place] [facility] [place]) OUTPATIENT [id number] IRAIDA MELBA 07 Dec 2014 DURHAMGINA ALDRICH Latisha 11/09 Released w/o Limitations [facility] [place] [facility] [place] TELE CONSULT [id number] Notes Entered by: OSCAR SAMUELS V 09 Nov 2014 1126 ------- ------- ------- ------- -- pcm bigorni a/NEED APPOINT MENT IN TWO WEEK FOR 38 WEEK CARLY SHRESTHA 11/09 Referred for Appointment [facility] [facility] [place] [facility] [place] OUTPATIENT [id number] 38 week ELVIRA CATES 11/23 Released w/o Limitations [facility] [place] [facility] [facility] [place] [facility] [place] TELE CONSULT [id number] Notes Entered by: Claudette SCHULTZ 25 Nov 2014 0858 ------- ------- ------- ------- -- PCM BIGORNI Nidhi/ /29Y/F/ PT. REQ. EARLIER SAVANNA 39 WK APPT. CARLY BURCH 11/25 Advice Assessment [facility] [place] [facility] [facility] [place] [facility] [place] OUTPATIENT [id number] 39 week ELVIRA Coy 11/30 Released w/o Limitations [facility] [place] [facility] [place] [facility] [place] TELE CONSULT [id number] Notes Entered by: Claudette SCHULTZ 02 Dec 2014 0930 ------- ------- ------- ------- -- PCM CARMINA Terrell/ /29Y/F/ PT. REQ. LISSET EDMOND HER SAVANNA 40 WK APPT. LEVI MONTES 12/02 Referred for Appointment [facility] [place] [facility] [place] [facility] [place] OUTPATIENT [id number] 40 wk SAVANNA -- due date 2014 ELVIRA FONTENOT 12/06 Released w/o Limitations [facility] [facility] [place] [facility] [place] [facility] FROM OTHER THAN ER OR APU [id number] PATIENCE SIDHU 12/14 DISCHARGED HOME [facility] [place] [facility] [place] TELE CONSULT [id number] Notes Entered by: DEDRA DUNN 23 Dec 2014 1326 ------- ------- ------- ------- -- RELAY HEALTH/ BLADDER CONCERN ANDERS HEALY 12/23 [facility] [place] [facility] [facility] [place] [facility] [place] TELE CONSULT [id number] Notes Entered by: MARK JONES 03 Jan 2015 1457 ------- ------- ------- ------- -- 6 week PP APPT/PC LILI GUNN 01/03 Other Not Elsewhere Classified [facility] [place] [facility] [facility] [place] [facility] [place] OUTPATIENT [id number] 6 WK P/P C/U. ELVIRA FONTENOT 02/07 Released w/o Limitations [facility] [place] [place] [facility] [place] [facility] [place]) OUTPATIENT [id number] PCM BIGORNI A/TO LOOK AT A MOLE LOCATED ON THE CREASE OF NOSE ELVIRA FONTENOT Claudette 04/07 Released w/o Limitations [facility] [place] [facility] [facility] [place] [facility] [place] TELE CONSULT [id number] Notes Entered by: ANA BOURGEOIS 10 May 2015 0926 ------- ------- ------- ------- -- pos ear infecti on and throat pain pcm bigorni a CARLY BURCH 05/10 Other Not Elsewhere Classified [facility] [facility] [place] OUTPATIENT [id number] Notes Entered by: MARK JONES 10 May 2015 1229 ------- ------- ------- ------- -- ear infecti onPCM bigorni a nurse visit ELVIRA FONTENOT Claudette 05/10 Released w/o Limitations [facility] [facility] [place] [facility] [place] [facility] [place] TELE CONSULT [id number] Notes Entered by: ARSENIO CURTIS 23 May 2015 1112 ------- ------- ------- ------- -- Needs nurse visit stitch removal 4 near nostril pcm bigorni a CARLY BURCH 05/23 Referred for Appointment [facility] [facility] [place] [facility] [place] OUTPATIENT [id number] SUTURE REMOVAL LILI PENG 05/26 Released w/o Limitations [facility] [facility] [place] [facility] [place] OUTPATIENT [id number] SUTURE REMOVAL MATIAS PENGINE 05/29 Released w/o Limitations [facility] [place] [facility] [place] Family Medicin e [facility]) [facility] Family [facility]) OUTPATIENT [id number] PCM Basim jiménez and arm issues SAMAN BRISENO 07/17 Released w/o Limitations [facility](T P Family Medicin e PC[facility] Gold) [facility]) OUTPATIENT [id number] PCM/Flu id in ears/sy mptoms of vertigo SAMAN BRISENO 11/15 Released w/o Limitations [facility](T P Family Medicin e [facility]) [facility]) TELE CONSULT [id number] Notes Entered by: JAMES CRANE 18 Nov 2016 1502 ------- ------- ------- ------- -- Normal CBC GINETTE, LILI 11/18 Other Not Elsewhere Classified [facility](T P Family Medicin e [facility]) [facility]iology [facility]) OUTPATIENT [id number] Other periphe ral vertigo . Ear fullnes s. TERRY HOBSON 01/20 Released w/o Limitations [facility](T P Audiolo gy Clinic) [facility] OUTPATIENT [id number] PCM/WWE /PAP SAMAN BRISENO 01/31 Released w/o Limitations [facility](T P Family Medicin e [facility] Gold) [...] 12 LEADS; WITH INTERPRETATION AND REPORT 021 [facility] SCREENING PAPANICOLAOU SMEAR; OBTAINING, PREPARING AND CONVEYANCE OF CERVICAL OR VAGINAL SMEAR TO LABORATORY 017 [facility] SPEECH AUDIOMETRY THRESHOLD; WITH SPEECH RECOGNITION 017 [facility] Screening papanicolaou smear; obtaining, preparing and conveyance of cervical or vaginal smear to laboratory 017 SAMAN BRISENO Audiometry Speech Threshold With Discrimination Audiometry Speech Threshold With Discrimination [id number] TERRY HOBSON Tympanometry Tympanometry [phone] TERRY HOBSON Threshold Audiogram (Pure Tone) Threshold Audiogram (Pure Tone) [id number] TERRY HOBSON Non-Physician Phone Call To Patient/Provider Brief (5-10min) Non-Physician Phone Call To Patient/Provider Brief (5-10min) [id number] [phone] CARLY BURCH Non-Physician Phone Call To Patient/Provider Brief (5-10min) Non-Physician Phone Call To Patient/Provider Brief (5-10min) [phone] CARLY BURCH Ultrasound Obstetric Limited Evaluation Ultrasound Obstetric Limited Evaluation [phone] CORIE, ELVIRA E [facility] Antepartum Care Only Subsequent Single Visit OB Services Antepartum Care Only Subsequent Single Visit [id number] 015 CORIE, ELVIRA E [facility] Antepartum Care Only Subsequent Single Visit OB Services Antepartum Care Only Subsequent Single Visit [id number] 015 CORIE, ELVIRA E [facility] Non-Physician Phone Call To Patient/Provider Brief (5-10min) Non-Physician Phone Call To Patient/Provider Brief (5-10min) [phone] CARLY BURCH Electrocardiogram Electrocardiogram 64067 11/24 015 CORIE, ELVIRA E [facility] Antepartum Care Only Subsequent Single Visit OB Services Antepartum Care Only Subsequent Single Visit [id number] 015 CORIE ELVIRA E [facility] Non-Physician Phone Call To Patient/Provider Brief (5-10min) Non-Physician Phone Call To Patient/Provider Brief (5-10min) [id number] CARLY BURCH Non-Physician Phone Call To Patient/Provider Brief (5-10min) Non-Physician Phone Call To Patient/Provider Brief (5-10min) [phone] GURDEEP THOMSON [facility] Screening papanicolaou smear; obtaining, preparing and conveyance of cervical or vaginal smear to laboratory 011 ROSENDO LEVY [facility] Social Work Individual Outpatient Counseling 20-30 Minutes Social Work Individual Outpatient Counseling 20-30 Minutes [id number] HENRIK IBRAHIM [facility] Ultrasound Obstetric Limited Evaluation Ultrasound Obstetric Limited Evaluation [id number] ROSENDO LEVY [facility] OB Services Antepartum Care Only Subsequent Single Visit OB Services Antepartum Care Only Subsequent Single Visit [id number] LEVYROSENDO CLEMENT [facility] Routine UA Without Microscopic Examination Routine UA Without Microscopic Examination [id number] LEVYROSENDO CLEMENT [facility] OB Services Antepartum Care Only Subsequent Single Visit OB Services Antepartum Care Only Subsequent Single Visit [id number] 010 LEBRON KIRK [facility] OB Services Antepartum Care Only Subsequent Single Visit OB Services Antepartum Care Only Subsequent Single Visit [id number] 010 JAIME LYNCH [facility] OB Services Antepartum Care Only Subsequent Single Visit OB Services Antepartum Care Only Subsequent Single Visit [id number] 010 JAIME LYNCH [facility] Ultrasound Obstetric Limited Evaluation Ultrasound Obstetric Limited Evaluation [id number] LEVYROSENDO CLEMENT [facility] OB Services Antepartum Care Only Subsequent Single Visit OB Services Antepartum Care Only Subsequent Single Visit [id number] 010 LEVYROSENDOEW [facility] OB Services Antepartum Care Only Subsequent Single Visit OB Services Antepartum Care Only Subsequent Single Visit [id number] 010 LEBRON KIRK [facility] Ultrasound Obstetric Limited Evaluation Ultrasound Obstetric Limited Evaluation [id number] 010 LEBRON KIRK OB Services Antepartum Care Only Subsequent Single Visit OB Services Antepartum Care Only Subsequent Single Visit [id number] 010 LEBRON KIRK OB Services Antepartum Care Only First Visit, With Report OB Services Antepartum Care Only First Visit, With Report [id number] 010 LEBRON KIRK Ultrasound Obstetric Limited Evaluation Ultrasound Obstetric Limited Evaluation [id number] 010 LEBRON KIRK [facility] Influenza Virus Vaccine Live Intranasal 009 JAIME LYNCH [facility] Immunization Admin By Intranasal / Oral Route One Vaccine Immunization Admin By Intranasal / Oral Route One Vaccine [id number] JAIME LYNCH [facility] Social History Combined list of available smoking, tobacco, and other social history from Department of Defense and Veterans Affairs facilities. Social History Type Response Date Comment Sour e Sex Representation Female (finding) 03/09/2020 Unknown Organization Sexual Orientation [facility] Gender identity [facility] This section is an empty social history section. [facility] Assessment and Plan Combined list of future care activities from Department of Defense and Veterans Affairs facilities (e.g., assessment and plan notes, appointments, orders, and referrals). Additional future care activities may be listed in the Plan of Care section. Result Assessment and Plan Date Source Assessment and Plan No data available for this section 06/14/2025 Ambulatory Pharmacy Functional Status Combined list of recent functional and cognitive assessments recorded at [facility] Functional [place] Measurement (FIM) Scale: 1 = Total Assistance (Subject = 0% +), 2 = Maximal Assistance (Subject = 25% +), 3 = Moderate Assistance (Subject = 50% +), 4 = Minimal Assistance (Subject = 75% +), 5 = Supervision, 6 = Modified [place] (Device), 7 = Complete [place] (Timely, Safely). Assessment Date/Time Source Assessment Type Assessment Skill Assessment Score Assessment Details No data available for this section
--- OUTSIDE RECORDS SUMMARY | 2025-06-14 09:13 | XMS_ITS | Patient Health Record ---
Author Organization Galo Arango [facility] Address [address] [place] [address] Care Team Providers Care Composition Instructor Name Role Phone Galo Arango Unavailable [phone] Reason For Referral No Information Medications Medication [...] W/U Status Risk Notes Problem Acute sinusitis (53758417) Acute sinusitis, unspecified (J01.90) 02/12/20 18 Active confirmed Problem Cervicalgia (76644693) Cervicalgia (M54.2) 09/01/20 17 Active confirmed Problem Dysphagia (85145139) Dysphagia, unspecified (R13.10) 02/12/20 18 Active confirmed Problem Low back pain (836231441) DO NOT USE Low back pain (M54.5) 08/25/20 17 Active confirmed Problem Abnormal cervical Papanicolaou smear with positive human papillomavirus deoxyribonucleic acid test (243434013) Cervical low risk HPV DNA test positive (R87.820) 11/26/19 20 Active confirmed Plan Of Treatment No Information Insurance Providers Payer Name Payer Address Payer Phone Subscriber Number Group Number Insured Name Patient Relationship to Insured Coverage Start Date Coverage End Date [address] [place] [phone] [id number] Jaylen Duenas Spouse - patient is the spouse of the insured 8
--- NOTE | 2025-06-14 09:20 | NEURO_ITS ---
Impression: # Complains of right upper extremity pain ? # No Carpal Tunnel Syndrome ? # No Ulnar Neuropathy ? # Right Triceps needle/ EMG exam mildly neurogenic; higher involvement needs to be ?ruled out. Nerve Conduction Studies ?Stim Site NR Peak (ms) P-T Amp (?V) Site1 Site2 Delta-P (ms) Dist (cm) Vin (m/s) Left Median Anti Sensory (2-3nd Digit) Wrist ? 3.0 52.1 Wrist 2-3nd Digit 3.0 14.0 47 Wrist ? 2.9 57.0 Wrist 2-3nd Digit 3.0 14.0 47 Right Median Anti Sensory (2-3nd Digit) Wrist ? 2.8 55.8 Wrist 2-3nd Digit 2.8 14.0 50 Wrist ? 2.8 56.0 Wrist 2-3nd Digit 2.8 14.0 50 Left Radial Anti Sensory (Base 1st Digit) Wrist ? 2.0 24.0 Wrist Base 1st Digit 2.0 0.0 Right Radial Anti Sensory (Base 1st Digit) Wrist ? 2.1 19.4 Wrist Base 1st Digit 2.1 0.0 Left Ulnar Anti Sensory (5th Digit) Wrist ? 2.6 54.1 Wrist 5th Digit 2.6 14.0 54 Right Ulnar Anti Sensory (5th Digit) Wrist ? 2.6 52.7 Wrist 5th Digit 2.6 14.0 54 ?Stim Site NR Onset (ms) O-P Amp (mV) Site1 Site2 Delta-0 (ms) Dist (cm) Vin (m/s) Left Median Motor (Abd Poll Brev) Wrist ? 3.1 3.2 Elbow Wrist 4.9 25.0 51 Elbow ? 8.0 3.4 Right Median Motor (Abd Poll Brev) Wrist ? 3.0 2.6 Elbow Wrist 4.3 24.0 56 Elbow ? 7.3 6.8 Left Ulnar Motor (Abd Dig Minimi) Wrist ? 2.1 5.4 A Elbow Wrist 4.5 26.0 58 A Elbow ? 6.6 4.9 B Elbow Wrist 3.4 19.0 56 B Elbow ? 5.5 4.5 Right Ulnar Motor (Abd Dig Minimi) Wrist ? 2.4 6.8 A Elbow Wrist 4.3 26.0 60 A Elbow ? 6.7 5.4 B Elbow Wrist 2.9 17.0 59 B Elbow ? 5.3 2.2 F Wave Studies ?NR F-Lat (ms) L-R F-Lat (ms) Left Median (Mrkrs) (Abd Poll Brev) ? 22.89 0.70 Right Median (Mrkrs) (Abd Poll Brev) ? 23.59 0.70 Left Ulnar (Mrkrs) (Abd Dig Min) ? 25.35 1.71 Right Ulnar (Mrkrs) (Abd Dig Min) ? 27.06 1.71 Electromyography ?Side Muscle Nerve Root Ins Act Fibs Amp Dur Recrt Comment Right 1stDorInt Ulnar C8-T1 Nml Nml Nml Nml Nml Right Ext Indicis Radial (Post Int) C7-8 Nml Nml Nml Nml Nml Right Ext Digitorum Radial (Post Int) C7-8 Nml Nml Nml Nml Nml Right BrachioRad Radial C5-6 Nml Nml Nml Nml Nml Right PronatorTeres Median C6-7 Nml Nml Nml Nml Nml Right Abd Poll Brev Median C8-T1 Nml Nml Nml Nml Nml Right ABD Dig Min Ulnar C8-T1 Nml Nml Nml Nml Nml Right FlexPolLong Median (Ant Int) C7-8 Nml Nml Nml Nml Nml Right Abd Poll Long Radial (Post Int) C7-8 Nml Nml Nml Nml Nml Right Deltoid Axillary C5-6 Nml Nml Nml Nml Nml Right Triceps Radial C6-7-8 Nml Nml Nml >12ms +1 Left Ext Digitorum Radial (Post Int) C7-8 Nml Nml Nml Nml Nml Left BrachioRad Radial C5-6 Nml Nml Nml Nml Nml Left PronatorTeres Median C6-7 Nml Nml Nml Nml Nml Left 1stDorInt Ulnar C8-T1 Nml Nml Nml Nml Nml Left ABD Dig Min Ulnar C8-T1 Nml Nml Nml Nml Nml Left FlexPolLong Median (Ant Int) C7-8 Nml Nml Nml Nml Nml Left Abd Poll Long Radial (Post Int) C7-8 Nml Nml Nml Nml Nml Left Deltoid Axillary C5-6 Nml Nml Nml Nml Nml Left Abd Poll Brev Median C8-T1 Nml Nml Nml Nml Nml Left Triceps Radial C6-7-8 Nml Nml Nml Nml Nml Left Ext Indicis Radial (Post Int) C7-8 Nml Nml Nml Nml Nml
== END 2025-06-14 08:47 | disposition home or self-care (01) ==
PROVIDERS: PCP Emergency Medicine; Visit Provider Emergency Medicine
DX: G56.91 Unspecified mononeuropathy of right upper limb (principal)
CPT/HCPCS: 95886; 95911